=== PATIENT | male | born 1975 | race Two or more races ===

== ENCOUNTER 2017-07-19 15:43 | Emergency (ER) | payer OTHER ==
[~2017-07-19] VITALS: Ht 177.8 cm; Wt 77.1 kg
== END 2017-07-20 09:18 | disposition home or self-care (01) ==
LOC: ER 15:43 → CPU-OBS 15:45 → ER 15:45
DX: I49.8 Other specified cardiac arrhythmias (principal)
CPT/HCPCS: G0379; 93005; 82805; 36600

== ENCOUNTER 2017-07-21 15:22 | Emergency (ER) | payer OTHER ==
[~2017-07-21] VITALS: Ht 177.8 cm; Wt 79.4 kg
== END 2017-07-21 21:00 | disposition home or self-care (01) ==
LOC: ER 15:22
DX: I49.8 Other specified cardiac arrhythmias (principal)

== ENCOUNTER 2017-07-26 07:33 | Outpatient (CLI) | payer OTHER | END 2017-07-26 07:36 | disposition home or self-care (01) | LOC: NUCLEAR 07:33 | DX: I47.1 Supraventricular tachycardia (principal) | CPT/HCPCS: A9500; 93017; 78452 ==

== ENCOUNTER 2022-01-18 09:11 | Emergency (ER) | payer OTHER ==
[~2022-01-18] VITALS: Ht 177.8 cm; Wt 84.4 kg
== END 2022-01-18 11:25 | disposition home or self-care (01) ==
LOC: ER 09:11
DX: R51.9 Headache, unspecified (principal); R20.0 Anesthesia of skin; Z88.6 Allergy status to analgesic agent